=== PATIENT | female | born 1995 | race Caucasian/White ===

== ENCOUNTER 2019-07-07 07:07 | Inpatient (IN) | payer BC ==
[2019-07-07] MEDS ORDERED: Sodium Chloride 0.9% 10 ML Syringe FLUSH PRN (08:21)
[2019-07-07] MEDS ORDERED: Nalbuphine 10 MG/ML Syringe IVPUSH PRN (08:24)
[2019-07-07] MEDS ORDERED: Acetaminophen 325 MG Tab PO PRN ×2 (08:24→21:40)
[2019-07-07] MEDS ORDERED: Oxytocin/Lactated Ringers 10 UNIT/1,000 ML BAG IV SCH ×3 (08:30→21:40)
--- NOTE | 2019-07-07 08:35 | PCM.LDHP ---
<ReaganPeter - Last Filed: 07/07/19 08:30> L&D History of Present Illness - General Date of Service: 07/07/19 Admit Problem/Dx: Patient Status Order with Admit Dx/Problem 07/07/19 08:21 Patient Status [ADT] Routine Admission Diagnosis/Problem Admission Diagnosis/Problem 39 weeks gestation of Source of Information: Patient History Limitations: Reports: No Limitations - History of Present Illness Introduction:: Alek Lieberman is a 23 yo who is being admitted today for induction of labor at 39 2/7 weeks. Patient denies any contractions at this time and is not experiencing any gushing or continuous leaking of fluid. She denies any vaginal bleeding. At this time she is experiencing cough and sore throat symptoms which have been improving over the past week. She states that she had lost her voice yesterday but is speaking clearly today. Patient does not seem concerned with the presenting symptoms. 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 Denies: Ear Pain, Eye Pain, Headaches, Hearing Changes, Visual Changes Pulmonary: Reports: Cough. Denies: Shortness of Breath, Wheezing Cardiovascular: Denies: Chest Pain, Palpitations Gastrointestinal: Denies: Constipation, Diarrhea, Nausea, Vomiting Genitourinary: Denies: Dysuria, Frequency, Burning, Pain Musculoskeletal: Denies: Arm Pain, Back Pain, Leg Pain, Joint Pain Skin: Denies: Rash, Lesions, Lumps Psychiatric: Denies: Depression, Anxiety Neurological: Denies: Dizziness, Numbness, Syncope, Tingling L&D Exam - Exam Exam: See Below - OB Specific Movement: Active Heart Tones: Present - Exam General: Alert, Oriented HEENT: Conjunctiva Clear, EOMI Neck: Supple, Trachea Midline Lungs: Clear to Auscultation, Normal Respiratory Effort Cardiovascular: Regular Rate, Regular Rhythm Skin: Warm, Dry, Intact Psychiatric: Alert, Normal Affect - Problem List (1) 39 weeks gestation of SNOMED Code(s): 11149206 ICD Code: Z3A.39 - 39 WEEKS GESTATION OF Status: Acute Current Visit: Yes (2) GBS bacteriuria SNOMED Code(s): 57226020 ICD Code: R82.71 - BACTERIURIA Status: Acute Current Visit: Yes (3) Chlamydia infection SNOMED Code(s): 240958908 ICD Code: A74.9 - CHLAMYDIAL INFECTION, UNSPECIFIED Status: Acute Current Visit: Yes (4) DVT (deep vein thrombosis) in SNOMED Code(s): 41103722, 597244944 ICD Code: O22.30 - DEEP PHLEBOTHROMBOSIS IN , UNSPECIFIED TRIMESTER Status: Acute Current Visit: Yes (5) UTI (urinary tract infection) during SNOMED Code(s): 255525786 ICD Code: O23.40 - UNSP INFECTION OF URINARY TRACT IN , UNSP TRIMESTER Status: Acute Current Visit: Yes Problem List Initiated/Reviewed/Updated: Yes Orders Last 24hrs: Active Orders 24 hr Category Date Time Status Patient Status [ADT] Routine ADT 07/07/19 08:21 Active Activity as Tolerated [RC] PFP Care 07/07/19 08:24 Active Antiembolic Devices [RC] PER UNIT ROUTINE Care 07/07/19 08:27 Active Communication Order [RC] ASDIRECTED Care 07/07/19 08:21 Active Non Stress Test [RC] PER UNIT ROUTINE Care 07/07/19 08:21 Active Notify Provider Vital Signs [RC] PRN Care 07/07/19 08:25 Active Notify Provider [RC] PFP Care 07/07/19 08:24 Active Notify Provider [RC] PRN Care 07/07/19 08:24 Active Peripheral IV Care [RC] . DIRECTED Care 07/07/19 08:22 Active Pump Management, Intrathecal [RC] ASDIRECTED Care 07/07/19 08:23 Active Urinary Catheter Assessment [RC] ASDIRECTED Care 07/07/19 08:21 Active Vital Signs [RC] PER UNIT ROUTINE Care 07/07/19 08:24 Active Regular Diet [DIET] Diet 07/07/19 Breakfast Active CBC WITH AUTO DIFF [HEME] Routine Lab 07/07/19 08:24 Ordered RAPID PLASMA REAGIN,RPR [CHEM] Routine Lab 07/07/19 08:24 Ordered Acetaminophen [Tylenol] Med 07/07/19 08:24 Ordered 650 mg PO Q6H PRN Ampicillin 1 gm Med 07/07/19 08:30 Ordered Sodium Chloride 0.9% [Normal Saline] 100 ml IV Q4H Ampicillin 2 gm Med 07/07/19 08:24 Ordered Sodium Chloride 0.9% [Normal Saline] 100 ml IV ONETIME Lactated Ringers [Ringers, Lactated] 1,000 ml Med 07/07/19 08:30 Ordered IV ASDIRECTED Nalbuphine [Nubain] Med 07/07/19 08:24 Ordered 10 mg IVPUSH Q2H PRN Oxytocin/Lactated Ringers [Pitocin in LR 10 Units/1,000 Med 07/07/19 08:30 Ordered ML] 10 unit in 1,000 ml IV .CONTINUOUS Oxytocin/Lactated Ringers [Pitocin in LR 10 Units/1,000 Med 07/07/19 08:30 Ordered ML] 10 unit in 1,000 ml IV TITRATE Sodium Chloride 0.9% [Saline Flush] Med 07/07/19 08:21 Ordered 10 ml FLUSH ASDIRECTED PRN Electronic Heart Tones Ext w TOCO [WOMSER] Oth 07/07/19 08:24 Ordered Routine Electronic Heart Tones Internal [WOMSER] Per Unit Oth 07/07/19 08:24 Ordered Routine Peripheral IV Insertion Adult [OM.PC] Routine Oth 07/07/19 08:21 Ordered Sequential Compression Device [OM.PC] Routine Oth 07/07/19 08:27 Ordered Resuscitation Status Routine Resus Stat 07/07/19 08:24 Ordered Medication Orders Acetaminophen (Tylenol) 650 mg PO Q6H PRN PRN Reason: Pain (Mild 1-3) and fever Ampicillin Sodium 2 gm/ Sodium (Chloride) 100 mls @ 200 mls/hr IV ONETIME ONE Stop: 07/07/19 08:53 Ampicillin Sodium 1 gm/ Sodium (Chloride) 100 mls @ 200 mls/hr IV Q4H AICHA Lactated Ringer's (Ringers, Lactated) 1,000 mls @ 100 mls/hr IV ASDIRECTED AICHA Oxytocin/Lactated Ringer's (Pitocin In Lr 10 Units/1,000 Ml) 10 unit in 1,000 mls @ 12 mls/hr IV TITRATE AICHA; Protocol Oxytocin/Lactated Ringer's (Pitocin In Lr 10 Units/1,000 Ml) 10 unit in 1,000 mls @ 100 mls/hr IV .CONTINUOUS AICHA; Protocol Nalbuphine HCl (Nubain) 10 mg IVPUSH Q2H PRN PRN Reason: Pain Sodium Chloride (Saline Flush) 10 ml FLUSH ASDIRECTED PRN PRN Reason: Keep Vein Open * Admit patient for induction of labor * Routine vital checks * Sequential Compression Devices for DVT prophylaxis * Normal diet as tolerated * IV Lactated Ringers keep IV open * IV ampicillin 1gm for GBS bacteruria, Pitocin PRN * Allergy to adhesive tape - Rash * CBC and RPR labs to be drawn LOU Laws 9:00am, 07/07/2019 <Rohit William - Last Filed: 07/07/19 09:47> L&D History of Present Illness - General Admit Problem/Dx: Patient Status Order with Admit Dx/Problem 07/07/19 08:21 Patient Status [ADT] Routine Admission Diagnosis/Problem Admission Diagnosis/Problem 39 weeks gestation of - History of Present Illness Associated Symptoms: Denies: vaginal discharge, vaginal fluid Present Illness Comments:: Alek Lieberman is a 23-year-old -1-1-2 at 39 weeks 2 days (KLARISSA 07/12/2019) by a 6-week ultrasound who presents for elective induction of labor. She has had routine care with myself, Dr. William, starting at 6 weeks gestational age. Her course has been overall uncomplicated except for diagnosis of chlamydia in early . Her and her partner were treated and she had negative test of cure during the . She was started on Lovenox 40 mg daily due to a history of DVT at her initial appointment. She received flu vaccine on 04/07/2019 and Tdap vaccine on 2018. She had exposure to influenza virus and was treated with Tamiflu but did not become ill from influenza. Her is complicated by: * History of DVT in previous , started on Lovenox 40 mg subcutaneous at her initial 6-week visit and will continue for 6 weeks * History of delivery at 35 weeks gestational age, declined use of [place] due to increased risk of DVT * Asymptomatic GBS bacteriuria throughout the , patient to be treated with antibiotics in labor * Chlamydia infection in early and treated with azithromycin with negative test of cure in labs Blood type: O+ Antibody screen: Negative First trimester hematocrit/hemoglobin: 40.3%/13.5 on 12/23/2018 Platelets: 290 on 12/23/2018 Urine culture: 800 CFU of GBS bacteria with mixed sharita suggestive of contamination Rubella status: Immune Hepatitis B surface antigen: Negative RPR: Negative HIV: Negative Gonorrhea: Negative Chlamydia: Positive, treated with azithromycin and negative test of cure Genetic testing: Negative prequel genetic testing with low risk for trisomy 13, 18, 21 or sex chromosomal abnormalities. Male infant. Negative for micro- deletions or expanded testing. Anatomy ultrasound: Normal anatomy without any abnormalities, anterior placenta, no previa, 34th percentile One hour glucose tolerance test: 70 Second trimester hematocrit/hemoglobin: 37.6%/12.4 on 04/14/2019 Platelets: 235 on 04/14/2019 GBS status: Asymptomatic GBS bacteriuria and plan for treatment during labor L&D Exam - OB Specific Heart Tones per Min: 125 (+15 x 15 accelerations, intermittent early decelerations noted) Heart Rate (FHR) Variability: Moderate (6-25 bmp) Presentation: Vertex - Torres Score Torres Score Cervix Position: Midposition Torres Score Consistency: Medium Torres Score Effacement: 51-70% (70%) Torres Score Dilation: 1-2 cm (1.5 cm) Torres Score 's Station: -3 (-4) Torres Score Total: 5 - Exam Genitourinary: Normal external exam Extremities: Normal Inspection, No Pedal Edema Psychiatric: Normal Mood - Patient Data Lab Results Last 24 hrs: Laboratory Results - last 24 hr 07/07/19 Range/Units 08:35 WBC 7.21 (3.98-10.04) K/mm3 RBC 3.90 L (3.98-5.22) M/mm3 Hgb 13.1 (11.2-15.7) gm/dl Hct 39.3 (34.1-44.9) % MCV 100.8 H (79.4-94.8) fl MCH 33.6 H (25.6-32.2) pg MCHC 33.3 (32.2-35.5) g/dl RDW Std Deviation 49.3 H (36.4-46.3) fL Plt Count 234 (182-369) K/mm3 MPV 9.5 (9.4-12.3) fl Neut % (Auto) 66.1 (34.0-71.1) % Lymph % (Auto) 27.9 (19.3-51.7) % [place] % (Auto) 5.5 (4.7-12.5) % Eos % (Auto) 0.3 L (0.7-5.8) Baso % (Auto) 0.1 (0.1-1.2) % Neut # (Auto) 4.76 (1.56-6.13) K/mm3 Lymph # (Auto) 2.01 (1.18-3.74) K/mm3 [place] # (Auto) 0.40 H (0.24-0.36) K/mm3 Eos # (Auto) 0.02 L (0.04-0.36) K/mm3 Baso # (Auto) 0.01 (0.01-0.08) K/mm3 Result Diagrams: 07/07/19 08:35 Orders Last 24hrs: Active Orders 24 hr Category Date Time Status Patient Status [ADT] Routine ADT 07/07/19 08:21 Active Activity as Tolerated [RC] PFP Care 07/07/19 08:24 Active Antiembolic Devices [RC] PER UNIT ROUTINE Care 07/07/19 08:27 Active Communication Order [RC] ASDIRECTED Care 07/07/19 08:21 Active Non Stress Test [RC] PER UNIT ROUTINE Care 07/07/19 08:21 Active Notify Provider Vital Signs [RC] PRN Care 07/07/19 08:25 Active Notify Provider [RC] ASDIRECTED Care 07/07/19 09:03 Active Notify Provider [RC] PFP Care 07/07/19 08:24 Active Notify Provider [RC] PRN Care 07/07/19 08:24 Active Peripheral IV Care [RC] . DIRECTED Care 07/07/19 08:22 Active Pump Management, Intrathecal [RC] ASDIRECTED Care 07/07/19 08:23 Active Urinary Catheter Assessment [RC] ASDIRECTED Care 07/07/19 08:21 Active Vital Signs [RC] PER UNIT ROUTINE Care 07/07/19 08:24 Active Regular Diet [DIET] Diet 07/07/19 Breakfast Active RAPID PLASMA REAGIN,RPR [CHEM] Routine Lab 07/07/19 08:35 Received Acetaminophen [Tylenol] Med 07/07/19 08:24 Active 650 mg PO Q6H PRN Ampicillin 1 gm Med 07/07/19 13:00 Active Sodium Chloride 0.9% [Normal Saline] 100 ml IV Q4H Bupivicaine/fentaNYL/NS [fentaNYL/Bupivacaine/NS 2 MCG- Med 07/07/19 09:03 Active 0.125% 250 ML] 250 ml EPIDUR CONTINUOUS PRN Lactated Ringers [Ringers, Lactated] 1,000 ml Med 07/07/19 08:30 Active IV ASDIRECTED Nalbuphine [Nubain] Med 07/07/19 08:24 Active 10 mg IVPUSH Q2H PRN Oxytocin/Lactated Ringers [Pitocin in LR 10 Units/1,000 Med 07/07/19 08:30 Active ML] 10 unit in 1,000 ml IV .CONTINUOUS Oxytocin/Lactated Ringers [Pitocin in LR 10 Units/1,000 Med 07/07/19 08:30 Active ML] 10 unit in 1,000 ml IV TITRATE Sodium Chloride 0.9% [Saline Flush] Med 07/07/19 08:21 Active 10 ml FLUSH ASDIRECTED PRN diphenhydrAMINE [Benadryl] Med 07/07/19 09:03 Active 25 mg IVPUSH Q6H PRN ePHEDrine [ePHEDrine sulfate] Med 07/07/19 09:03 Active 5 mg IVPUSH ASDIRECTED PRN fentaNYL [Sublimaze] Med 07/07/19 09:03 Active 100 mcg EPIDUR Q3H PRN Electronic Heart Tones Ext w TOCO [WOMSER] Oth 07/07/19 08:24 Ordered Routine Electronic Heart Tones Internal [WOMSER] Per Unit Ot 07/07/19 08:24 Ordered Routine Peripheral IV Insertion Adult [OM.PC] Routine Oth 07/07/19 08:21 Ordered Sequential Compression Device [OM.PC] Routine Oth 07/07/19 08:27 Ordered Resuscitation Status Routine Resus Stat 07/07/19 08:24 Ordered Medication Orders Acetaminophen (Tylenol) 650 mg PO Q6H PRN PRN Reason: Pain (Mild 1-3) and fever Diphenhydramine HCl (Benadryl) 25 mg IVPUSH Q6H PRN PRN Reason: pruritis Ephedrine Sulfate (Ephedrine Sulfate) 5 mg IVPUSH ASDIRECTED PRN PRN Reason: Hypotension Fentanyl (Sublimaze) 100 mcg EPIDUR Q3H PRN PRN Reason: Pain Fentanyl/Bupivacaine HCl (Fentanyl/Bupivacaine/Ns 2 Mcg-0.125% 250 Ml) 250 ml EPIDUR CONTINUOUS PRN PRN Reason: Pain Ampicillin Sodium 1 gm/ Sodium (Chloride) 100 mls @ 200 mls/hr IV Q4H AICHA Lactated Ringer's (Ringers, Lactated) 1,000 mls @ 100 mls/hr IV ASDIRECTED AICHA Last Admin: 07/07/19 09:00 Dose: 100 mls/hr Oxytocin/Lactated Ringer's (Pitocin In Lr 10 Units/1,000 Ml) 10 unit in 1,000 mls @ 12 mls/hr IV TITRATE AICHA; Protocol Last Admin: 07/07/19 09:02 Dose: 2 munits/min, 12 mls/hr Oxytocin/Lactated Ringer's (Pitocin In Lr 10 Units/1,000 Ml) 10 unit in 1,000 mls @ 100 mls/hr IV .CONTINUOUS AICHA; Protocol Nalbuphine HCl (Nubain) 10 mg IVPUSH Q2H PRN PRN Reason: Pain Sodium Chloride (Saline Flush) 10 ml FLUSH ASDIRECTED PRN PRN Reason: Keep Vein Open Assessment/Plan Comment:: I have seen and evaluated the patient personally with the PA student and agree with the assessment and plan as per above except for the following changes: * Ampicillin 2 g initially followed by ampicillin 1 g IV every 4 hours for GBS prophylaxis * We will plan to restart Lovenox 4 to 6 hours after vaginal delivery and between 6 to 12 hours if she needs to have delivery. She will be restarted on Lovenox 40 mg subcutaneous daily for 6 weeks after delivery. * Plan for artificial rupture of membranes once patient has had sufficient dosing with the antibiotic * Anticipate vaginal delivery unless otherwise indicated. Rohit William MD 9:47 AM 07/07/2019
[2019-07-07] MEDS: Lactated Ringers 1,000 ML IV SCH ×3 (09:00→15:46)
[2019-07-07] MEDS ORDERED: Ampicillin 2 GM in Sodium Chloride 0.9% 100 ML IV ONE (09:00)
[2019-07-07] MEDS ORDERED: fentaNYL 100 MCG/2 ML SDV EPIDUR PRN (09:03)
[2019-07-07] MEDS ORDERED: ePHEDrine 50 MG/ML SDV IVPUSH PRN (09:03)
[2019-07-07] MEDS ORDERED: diphenhydrAMINE 50 MG/ML SDV IVPUSH PRN (09:03)
[2019-07-07] MEDS ORDERED: fentaNYL/Bupivacaine/NS 2 MCG-0.125% 250 ML EPIDUR PRN (09:03)
--- NOTE | 2019-07-07 09:40 | PCM.PREANE ---
Preanesthetic Assessment - Procedure Proposed Procedure: NILS - Anesthesia/Transfusion/Family Hx Anesthesia History: Prior Anesthesia Reaction Type of Anesthesia Reaction: Excessive Nausea/Vomiting Family History of Anesthesia Reaction: No Transfusion History: No Prior Transfusion(s) - Review of Systems General: No Symptoms Pulmonary: Shortness of Breath (just got over cold), Cough Cardiovascular: No Symptoms Gastrointestinal: No Symptoms Neurological: No Symptoms Other: Reports: Throat Pain (sore throat from cold) - Physical Assessment Vital Signs: 97.7 114/70 83 15 Height: 5 ft 5 in Weight: 71.214 kg ASA Class: 2 Mental Status: Alert & Oriented x3 Airway Class: Mallampati = 1 Dentition: Reports: Normal Dentition Thyro-Mental Finger Breadths: 3 Mouth Opening Finger Breadths: 3 ROM/Head Extension: Full Lungs: Clear to Auscultation, Normal Respiratory Effort Cardiovascular: Regular Rate, Regular Rhythm - Lab Values: Laboratory Last Values WBC 7.21 K/mm3 (3.98-10.04) 07/07/19 08:35 RBC 3.90 M/mm3 (3.98-5.22) L 07/07/19 08:35 Hgb 13.1 gm/dl (11.2-15.7) 07/07/19 08:35 Hct 39.3 % (34.1-44.9) 07/07/19 08:35 MCV 100.8 fl (79.4-94.8) H 07/07/19 08:35 MCH 33.6 pg (25.6-32.2) H 07/07/19 08:35 MCHC 33.3 g/dl (32.2-35.5) 07/07/19 08:35 RDW Std Deviation 49.3 fL (36.4-46.3) H 07/07/19 08:35 Plt Count 234 K/mm3 (182-369) 07/07/19 08:35 MPV 9.5 fl (9.4-12.3) 07/07/19 08:35 Neut % (Auto) 66.1 % (34.0-71.1) 07/07/19 08:35 Lymph % (Auto) 27.9 % (19.3-51.7) 07/07/19 08:35 [place] % (Auto) 5.5 % (4.7-12.5) 07/07/19 08:35 Eos % (Auto) 0.3 (0.7-5.8) L 07/07/19 08:35 Baso % (Auto) 0.1 % (0.1-1.2) 07/07/19 08:35 Neut # (Auto) 4.76 K/mm3 (1.56-6.13) 07/07/19 08:35 Lymph # (Auto) 2.01 K/mm3 (1.18-3.74) 07/07/19 08:35 [place] # (Auto) 0.40 K/mm3 (0.24-0.36) H 07/07/19 08:35 Eos # (Auto) 0.02 K/mm3 (0.04-0.36) L 07/07/19 08:35 Baso # (Auto) 0.01 K/mm3 (0.01-0.08) 07/07/19 08:35 - Allergies Allergies/Adverse Reactions: Allergies Allergy/AdvReac Type Severity Reaction Status Date / Time No Known Allergies Allergy Verified 09/11/17 17:22 - Blood Blood Available: No - Acknowledgements Anesthesia Type Planned: Epidural Pt an Appropriate Candidate for the Planned Anesthesia: Yes Alternatives and Risks of Anesthesia Discussed w Pt/Guardian: Yes Pt/Guardian Understands and Agrees with Anesthesia Plan: Yes PreAnesthesia Questionnaire - Past Health History Medical/Surgical History: Denies Medical/Surgical History Cardiovascular History: Reports: Blood Clots/VTE/DVT (DVT with last last - while - has been on lovenex- last took it on the 18. 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 [No Known Home Meds] 09/11/17 [History] - CURRENT (IN HOUSE) MEDS Current Meds: Current Medications Acetaminophen (Tylenol) 650 mg PO Q6H PRN PRN Reason: Pain (Mild 1-3) and fever Diphenhydramine HCl (Benadryl) 25 mg IVPUSH Q6H PRN PRN Reason: pruritis Ephedrine Sulfate (Ephedrine Sulfate) 5 mg IVPUSH ASDIRECTED PRN PRN Reason: Hypotension Fentanyl (Sublimaze) 100 mcg EPIDUR Q3H PRN PRN Reason: Pain Fentanyl/Bupivacaine HCl (Fentanyl/Bupivacaine/Ns 2 Mcg-0.125% 250 Ml) 250 ml EPIDUR CONTINUOUS PRN PRN Reason: Pain Ampicillin Sodium 1 gm/ Sodium (Chloride) 100 mls @ 200 mls/hr IV Q4H AICHA Lactated Ringer's (Ringers, Lactated) 1,000 mls @ 100 mls/hr IV ASDIRECTED AICHA Last Admin: 07/07/19 09:00 Dose: 100 mls/hr Oxytocin/Lactated Ringer's (Pitocin In Lr 10 Units/1,000 Ml) 10 unit in 1,000 mls @ 12 mls/hr IV TITRATE AICHA; Protocol Last Admin: 07/07/19 09:02 Dose: 2 munits/min, 12 mls/hr Oxytocin/Lactated Ringer's (Pitocin In Lr 10 Units/1,000 Ml) 10 unit in 1,000 mls @ 100 mls/hr IV .CONTINUOUS AICHA; Protocol Nalbuphine HCl (Nubain) 10 mg IVPUSH Q2H PRN PRN Reason: Pain Sodium Chloride (Saline Flush) 10 ml FLUSH ASDIRECTED PRN PRN Reason: Keep Vein Open Discontinued Medications Ampicillin Sodium 2 gm/ Sodium (Chloride) 100 mls @ 200 mls/hr IV ONETIME ONE Stop: 07/07/19 09:29 Last Admin: 07/07/19 09:00 Dose: 200 mls/hr
[2019-07-07] MEDS: Ampicillin 1 GM in Sodium Chloride 0.9% 100 ML IV SCH ×2 (13:02→17:05)
--- NOTE | 2019-07-07 13:43 | PCM.PNLD ---
Labor Progress Note - VS & Meds Vital Signs: Last Vital Signs Temp 36.5 C 07/07/19 08:24 Pulse 85 07/07/19 08:24 Resp 15 07/07/19 08:24 BP 114/70 07/07/19 08:24 Pulse Ox Active Medications: Current Medications Acetaminophen (Tylenol) 650 mg PO Q6H PRN PRN Reason: Pain (Mild 1-3) and fever Diphenhydramine HCl (Benadryl) 25 mg IVPUSH Q6H PRN PRN Reason: pruritis Ephedrine Sulfate (Ephedrine Sulfate) 5 mg IVPUSH ASDIRECTED PRN PRN Reason: Hypotension Fentanyl (Sublimaze) 100 mcg EPIDUR Q3H PRN PRN Reason: Pain Fentanyl/Bupivacaine HCl (Fentanyl/Bupivacaine/Ns 2 Mcg-0.125% 250 Ml) 250 ml EPIDUR CONTINUOUS PRN PRN Reason: Pain Ampicillin Sodium 1 gm/ Sodium (Chloride) 100 mls @ 200 mls/hr IV Q4H AICHA Last Admin: 07/07/19 13:02 Dose: 200 mls/hr Lactated Ringer's (Ringers, Lactated) 1,000 mls @ 100 mls/hr IV ASDIRECTED AICHA Last Admin: 07/07/19 09:00 Dose: 100 mls/hr Oxytocin/Lactated Ringer's (Pitocin In Lr 10 Units/1,000 Ml) 10 unit in 1,000 mls @ 12 mls/hr IV TITRATE AICHA; Protocol Last Titration: 07/07/19 13:00 Dose: 12 munits/min, 72 mls/hr Oxytocin/Lactated Ringer's (Pitocin In Lr 10 Units/1,000 Ml) 10 unit in 1,000 mls @ 100 mls/hr IV .CONTINUOUS AICHA; Protocol Nalbuphine HCl (Nubain) 10 mg IVPUSH Q2H PRN PRN Reason: Pain Sodium Chloride (Saline Flush) 10 ml FLUSH ASDIRECTED PRN PRN Reason: Keep Vein Open Discontinued Medications Ampicillin Sodium 2 gm/ Sodium (Chloride) 100 mls @ 200 mls/hr IV ONETIME ONE Stop: 07/07/19 09:29 Last Admin: 07/07/19 09:00 Dose: 200 mls/hr - Uterine Contractions Uterine Monitoring Mode: External [place] Contraction Frequency (min): 3-4 Contraction Duration (sec): 45-60 Contraction Intensity: Moderate - Monitoring Monitor Mode: Doppler/Auscultation Heart Rate (FHR) Baseline: 135 Heart Rate (FHR) Per Doppler: 135 Heart Rate (FHR) Variability: Moderate (6-25 bmp) Accelerations: Present, 15x15 Decelerations: Variable, Intermittent (<50% x 20 min) Strip Review: Category II - Vaginal Exam Dilation (cm): 3 Effacement (Percent): 90 Station: -3 Cervical Position: Anterior Sterile Vaginal Exam Performed By: Rohit William Vaginal Exam Comment: Artificial rupture of membranes with [place] with return of clear fluid. Mother and tolerated without difficulty. - Labor Progress (Free Text) Labor Progress: * Patient with good progression on Pitocin * Continue Ampicillin for GBS prophylaxis * Routine vitals * SCDs while immobile to reduce risk of DVT * Continuous monitoring as possible * Anticipate vaginal delivery unless otherwise indicated Rohit William MD 1:43 PM 07/07/2019
--- NOTE | 2019-07-07 16:26 | PCM.PNLD ---
Labor Progress Note - VS & Meds Vital Signs: Last Vital Signs Temp 36.5 C 07/07/19 08:24 Pulse 85 07/07/19 08:24 Resp 15 07/07/19 08:24 BP 114/70 07/07/19 08:24 Pulse Ox Active Medications: Current Medications Acetaminophen (Tylenol) 650 mg PO Q6H PRN PRN Reason: Pain (Mild 1-3) and fever Diphenhydramine HCl (Benadryl) 25 mg IVPUSH Q6H PRN PRN Reason: pruritis Ephedrine Sulfate (Ephedrine Sulfate) 5 mg IVPUSH ASDIRECTED PRN PRN Reason: Hypotension Fentanyl (Sublimaze) 100 mcg EPIDUR Q3H PRN PRN Reason: Pain Last Admin: 07/07/19 14:36 Dose: 100 mcg Fentanyl/Bupivacaine HCl (Fentanyl/Bupivacaine/Ns 2 Mcg-0.125% 250 Ml) 250 ml EPIDUR CONTINUOUS PRN PRN Reason: Pain Last Admin: 07/07/19 14:37 Dose: 250 ml Ampicillin Sodium 1 gm/ Sodium (Chloride) 100 mls @ 200 mls/hr IV Q4H AICHA Last Admin: 07/07/19 13:02 Dose: 200 mls/hr Lactated Ringer's (Ringers, Lactated) 1,000 mls @ 100 mls/hr IV ASDIRECTED AICHA Last Admin: 07/07/19 15:46 Dose: 100 mls/hr Oxytocin/Lactated Ringer's (Pitocin In Lr 10 Units/1,000 Ml) 10 unit in 1,000 mls @ 12 mls/hr IV TITRATE AICHA; Protocol Last Titration: 07/07/19 13:45 Dose: 6 munits/min, 36 mls/hr Oxytocin/Lactated Ringer's (Pitocin In Lr 10 Units/1,000 Ml) 10 unit in 1,000 mls @ 100 mls/hr IV .CONTINUOUS AICHA; Protocol Nalbuphine HCl (Nubain) 10 mg IVPUSH Q2H PRN PRN Reason: Pain Sodium Chloride (Saline Flush) 10 ml FLUSH ASDIRECTED PRN PRN Reason: Keep Vein Open Discontinued Medications Ampicillin Sodium 2 gm/ Sodium (Chloride) 100 mls @ 200 mls/hr IV ONETIME ONE Stop: 07/07/19 09:29 Last Admin: 07/07/19 09:00 Dose: 200 mls/hr - Uterine Contractions Uterine Monitoring Mode: External [place] Contraction Frequency (min): 2-5 Contraction Duration (sec): 45-60 Contraction Intensity: Moderate - Monitoring Monitor Mode: Doppler/Auscultation Heart Rate (FHR) Baseline: 125 Heart Rate (FHR) Per Doppler: 125 Heart Rate (FHR) Variability: Moderate (6-25 bmp) Accelerations: Present, 15x15 Decelerations: Variable, Recurrent (>50% x 20 min) Strip Review: Category II - Vaginal Exam Dilation (cm): 5 Effacement (Percent): 90 Station: -2 Cervical Position: Anterior Sterile Vaginal Exam Performed By: Rohit William Vaginal Exam Comment: Patient with recurrent variable decelerations down to 60s to 80s with almost every contraction. Pitocin stopped at this time. Continue to have recurrent variable decelerations with Pitocin stopped. Decision made for amnioinfusion. Verbal consent obtained from the patient for placement of intrauterine pressure catheter and scalp electrode to more closely monitor heart rate. Patient gave verbal consent after discussion of risks and benefits of the placement of the monitors. Intrauterine pressure catheter placed without difficulty and amnioinfusion started. Patient to receive 250 mL bolus of normal saline and then run infusion at 50 mL/h afterwards. scalp electrode then placed without difficulty on 's head with good tracing noted. Mother and tolerated both procedures without difficulty. We will plan to restart augmentation of labor with Pitocin after amnioinfusion bolus has been instilled. - Labor Progress (Free Text) Labor Progress: Patient making progress Recurrent decelerations and placement of IUPC and scalp electrode as per above Amnioinfusion started with NS bolus of 250 mL then transition to 50 ml/hr after to try to improve variable decelerations Epidural in place and good anesthesia SCDs on for history of DVT Routine vitals Continuous monitoring Anticipate vaginal delivery unless otherwise indicated Rohit William MD 6:24 PM 07/07/2019
[2019-07-07] MEDS ORDERED: Sodium Chloride 0.9% 1,000 ML PRN (17:00)
--- NOTE | 2019-07-07 18:30 | PCM.PNLD ---
Labor Progress Note - VS & Meds Vital Signs: Last Vital Signs Temp 36.5 C 07/07/19 08:24 Pulse 85 07/07/19 08:24 Resp 15 07/07/19 08:24 BP 114/70 07/07/19 08:24 Pulse Ox Active Medications: Current Medications Acetaminophen (Tylenol) 650 mg PO Q6H PRN PRN Reason: Pain (Mild 1-3) and fever Diphenhydramine HCl (Benadryl) 25 mg IVPUSH Q6H PRN PRN Reason: pruritis Ephedrine Sulfate (Ephedrine Sulfate) 5 mg IVPUSH ASDIRECTED PRN PRN Reason: Hypotension Fentanyl (Sublimaze) 100 mcg EPIDUR Q3H PRN PRN Reason: Pain Last Admin: 07/07/19 14:36 Dose: 100 mcg Fentanyl/Bupivacaine HCl (Fentanyl/Bupivacaine/Ns 2 Mcg-0.125% 250 Ml) 250 ml EPIDUR CONTINUOUS PRN PRN Reason: Pain Last Admin: 07/07/19 14:37 Dose: 250 ml Ampicillin Sodium 1 gm/ Sodium (Chloride) 100 mls @ 200 mls/hr IV Q4H AICHA Last Admin: 07/07/19 17:05 Dose: 200 mls/hr Lactated Ringer's (Ringers, Lactated) 1,000 mls @ 100 mls/hr IV ASDIRECTED AICHA Last Admin: 07/07/19 15:46 Dose: 100 mls/hr Oxytocin/Lactated Ringer's (Pitocin In Lr 10 Units/1,000 Ml) 10 unit in 1,000 mls @ 12 mls/hr IV TITRATE AICHA; Protocol Last Titration: 07/07/19 18:10 Dose: 2 munits/min, 12 mls/hr Oxytocin/Lactated Ringer's (Pitocin In Lr 10 Units/1,000 Ml) 10 unit in 1,000 mls @ 100 mls/hr IV .CONTINUOUS AICHA; Protocol Sodium Chloride (Normal Saline) 1,000 mls @ 50 mls/hr .XX ASDIRECTED PRN PRN Reason: AMNIO INFUSION IN UTERUS Last Admin: 07/07/19 16:30 Dose: 50 mls/hr Nalbuphine HCl (Nubain) 10 mg IVPUSH Q2H PRN PRN Reason: Pain Sodium Chloride (Saline Flush) 10 ml FLUSH ASDIRECTED PRN PRN Reason: Keep Vein Open Discontinued Medications Ampicillin Sodium 2 gm/ Sodium (Chloride) 100 mls @ 200 mls/hr IV ONETIME ONE Stop: 07/07/19 09:29 Last Admin: 07/07/19 09:00 Dose: 200 mls/hr - Uterine Contractions Uterine Monitoring Mode: External [place] Contraction Frequency (min): 5 Contraction Duration (sec): 60-75 Contraction Intensity: Mild to Moderate - Monitoring Monitor Mode: Spiral Electrode Heart Rate (FHR) Baseline: 130 Heart Rate (FHR) Variability: Moderate (6-25 bmp) Accelerations: Present, 15x15 Decelerations: Variable, Intermittent (<50% x 20 min) Strip Review: Category II - Vaginal Exam Dilation (cm): 6 Effacement (Percent): 90 Station: -2 Cervical Position: Anterior Sterile Vaginal Exam Performed By: Rohit William Vaginal Exam Comment: Return of moderate amount of clear fluid with cervical exam. - Labor Progress (Free Text) Labor Progress: * Patient continuing to make progression at this time * Patient with category 2 tracing with intermittent variable decelerations that have decreased in severity with lowest heart rate into the 70s to 80s at this time * Patient continues to have moderate variability with accelerations after contractions * Patient with adequate rest following discontinuation of Pitocin * Recommend reinitiation of Pitocin and will continue induction at this time * We will continue to increase Pitocin as indicated based on tracing to try to avoid variable decelerations * Routine vitals * Epidural in place for anesthesia * SCDs on to prevent DVT * Anticipate vaginal delivery unless otherwise indicated Rohit William MD 6:30 PM 07/07/2019
[2019-07-07] MEDS ORDERED: Ondansetron 4 MG/2 ML SDV IVPUSH PRN (18:32)
--- NOTE | 2019-07-07 20:22 | PCM.DEL ---
L & D Note - General Info Date of Service: 07/07/19 Mother's Due Date: 07/12/19 - Delivery Note Labor: Augmented by ARM, Augmented by Oxytocin Infant Delivery Method: Spontaneous Vaginal Delivery-Single Presentation: Right Occiput Anterior (GALA) Nuchal Cord: Present (x1 and not reduced prior to delivery) Anesthesia Type: Epidural Episiotomy Type: None Laceration: Labial (left labial first degree repaired with 4-0 Vicryl), Perineal (first degree midline, repaired with 4-0 Vicryl) Suture type: Vicryl Suture size: 4-0 Placenta: Intact, Spontaneous Cord: 3 Vessels Estimated Blood Loss: 300 Resuscitation Needed: No : Bulb Syringe, Stimulated, Warmed, [place] Used Provider: Rohit William Score 1 min: 9 Score 5 min: 9 Second Stage Interventions: Reports: Pushing Effectively, Pushing, Stirrups/Leg Supports Delivery Comments (Free Text/Narrative):: Stage I: Alek Lieberman was admitted for elective induction of labor. On admission her cervix was dilated to 1.5 cm. She was GBS positive with asymptomatic GBS bacteria. She was started on ampicillin for GBS prophylaxis. She received a total of 3 doses prior to delivery. She was started on Pitocin for induction of labor. She had artificial rupture of membranes with return of clear fluid. She was given an epidural for anesthesia. She began having significant deep variable decelerations and the Pitocin was stopped. She continued to have deep variable decelerations and an intrauterine pressure catheter was placed and amnioinfusion started. She also had placement of scalp electrode for monitoring of heart rate. She was given approximately 1 hour of time to rest and recover with amnioinfusion and Pitocin was restarted for ongoing induction of labor. She progressed to complete and pushing. Stage II: On 07/07/2019 she had a normal vaginal delivery of a live male at 19:28. Apgars of 9 & 9. Weight and length were unavailable at time of this note. There was a single nuchal cord that was tight around the neck and not able to be reduced prior to delivery. was delivered in GALA position. The cord was doubly clamped and cut by father of the infant. was placed on mother's abdomen. Stage III: She had a spontaneous delivery of an intact placenta in Steve presentation. Three vessel cord. She was given pitocin and fundal massage. She had a first-degree midline perineal laceration that was repaired with 4-0 Vicryl. She had a first-degree left labial laceration that was bleeding and repaired with 4-0 Vicryl in running fashion. Mom and baby were stable to recovery. EBL of 300 mL. Rohit William MD 8:15 PM 07/07/2019 Induction Criteria - Torres Score Torres Score Dilation: 1-2 cm Torres Score Effacement: 60-70% Torres Score Infant's Station: -3 Torres Score Consistency: Medium Torres Score Cervix Position: Midposition Torres Score Total: 5 Torres Score Presenting Part: Reports: Cephalic - Induction Gestational Age >/= 39 wks: Yes Estimated Pelvis: Reports: Adequate Reassuring Monitoring Strip: Yes Absence of Tachy Systole: Yes - Augmentation Estimated Pelvis: Reports: Adequate Weight Estimated:: Reports: AGA Reassuring Monitoring Strip: Yes Absence of Tachy Systole: Yes - General Info Date of Service: 07/07/19 - Patient Data Vitals - Most Recent: Last Vital Signs Temp 36.5 C 07/07/19 08:24 Pulse 85 07/07/19 08:24 Resp 15 07/07/19 08:24 BP 114/70 07/07/19 08:24 Pulse Ox Weight - Most Recent: 71.214 kg Lab Results Last 24 Hours: Laboratory Results - last 24 hr 07/07/19 07/07/19 Range/Units 08:35 08:35 WBC 7.21 (3.98-10.04) K/mm3 RBC 3.90 L (3.98-5.22) M/mm3 Hgb 13.1 (11.2-15.7) gm/dl Hct 39.3 (34.1-44.9) % MCV 100.8 H (79.4-94.8) fl MCH 33.6 H (25.6-32.2) pg MCHC 33.3 (32.2-35.5) g/dl RDW Std Deviation 49.3 H (36.4-46.3) fL Plt Count 234 (182-369) K/mm3 MPV 9.5 (9.4-12.3) fl Neut % (Auto) 66.1 (34.0-71.1) % Lymph % (Auto) 27.9 (19.3-51.7) % [place] % (Auto) 5.5 (4.7-12.5) % Eos % (Auto) 0.3 L (0.7-5.8) Baso % (Auto) 0.1 (0.1-1.2) % Neut # (Auto) 4.76 (1.56-6.13) K/mm3 Lymph # (Auto) 2.01 (1.18-3.74) K/mm3 [place] # (Auto) 0.40 H (0.24-0.36) K/mm3 Eos # (Auto) 0.02 L (0.04-0.36) K/mm3 Baso # (Auto) 0.01 (0.01-0.08) K/mm3 RPR Non-reactive (NONREACTIVE) Med Orders - Current: Current Medications Acetaminophen (Tylenol) 650 mg PO Q6H PRN PRN Reason: Pain (Mild 1-3) and fever Diphenhydramine HCl (Benadryl) 25 mg IVPUSH Q6H PRN PRN Reason: pruritis Ephedrine Sulfate (Ephedrine Sulfate) 5 mg IVPUSH ASDIRECTED PRN PRN Reason: Hypotension Fentanyl (Sublimaze) 100 mcg EPIDUR Q3H PRN PRN Reason: Pain Last Admin: 07/07/19 14:36 Dose: 100 mcg Fentanyl/Bupivacaine HCl (Fentanyl/Bupivacaine/Ns 2 Mcg-0.125% 250 Ml) 250 ml EPIDUR CONTINUOUS PRN PRN Reason: Pain Last Admin: 07/07/19 14:37 Dose: 250 ml Ampicillin Sodium 1 gm/ Sodium (Chloride) 100 mls @ 200 mls/hr IV Q4H AICHA Last Admin: 07/07/19 17:05 Dose: 200 mls/hr Lactated Ringer's (Ringers, Lactated) 1,000 mls @ 100 mls/hr IV ASDIRECTED AICHA Last Admin: 07/07/19 15:46 Dose: 100 mls/hr Oxytocin/Lactated Ringer's (Pitocin In Lr 10 Units/1,000 Ml) 10 unit in 1,000 mls @ 12 mls/hr IV TITRATE AICHA; Protocol Last Titration: 01/20/20 18:56 Dose: 4 munits/min, 24 mls/hr Oxytocin/Lactated Ringer's (Pitocin In Lr 10 Units/1,000 Ml) 10 unit in 1,000 mls @ 100 mls/hr IV .CONTINUOUS AICHA; Protocol Last Admin: 07/07/19 20:14 Dose: 500 mls/hr Sodium Chloride (Normal Saline) 1,000 mls @ 50 mls/hr .XX ASDIRECTED PRN PRN Reason: AMNIO INFUSION IN UTERUS Last Admin: 07/07/19 16:30 Dose: 50 mls/hr Nalbuphine HCl (Nubain) 10 mg IVPUSH Q2H PRN PRN Reason: Pain Ondansetron HCl (Zofran) 4 mg IVPUSH Q8H PRN PRN Reason: Nausea Last Admin: 07/07/19 18:52 Dose: 4 mg Sodium Chloride (Saline Flush) 10 ml FLUSH ASDIRECTED PRN PRN Reason: Keep Vein Open Discontinued Medications Ampicillin Sodium 2 gm/ Sodium (Chloride) 100 mls @ 200 mls/hr IV ONETIME ONE Stop: 07/07/19 09:29 Last Admin: 07/07/19 09:00 Dose: 200 mls/hr - Problem List & Annotations (1) History of deep vein thrombosis (DVT) during SNOMED Code(s): 37690265 Code(s): Z86.718 - PERSONAL HISTORY OF OTHER VENOUS THROMBOSIS AND EMBOLISM; Z87.59 - PERSONAL HISTORY OF COMP OF PREG, CHLDBRTH AND THE PUERP Status: Acute Current Visit: Yes (2) History of delivery, currently SNOMED Code(s): 928946608, 617154514 Code(s): O09.219 - SUPRVSN OF PREG W HISTORY OF PRE-TERM LABOR, UNSP TRIMESTER Status: Acute Current Visit: Yes (3) 39 weeks gestation of SNOMED Code(s): 28234070 Code(s): Z3A.39 - 39 WEEKS GESTATION OF Status: Acute Current Visit: Yes (4) Chlamydia infection SNOMED Code(s): 662658040 Code(s): A74.9 - CHLAMYDIAL INFECTION, UNSPECIFIED Status: Acute Current Visit: Yes (5) GBS bacteriuria SNOMED Code(s): 28044010 Code(s): R82.71 - BACTERIURIA Status: Acute Current Visit: Yes (6) Vaginal delivery SNOMED Code(s): 397071553 Code(s): O80 - ENCOUNTER FOR FULL-TERM UNCOMPLICATED DELIVERY Status: Acute Current Visit: Yes (7) First degree perineal laceration during delivery SNOMED Code(s): 984049072 Code(s): O70.0 - FIRST DEGREE PERINEAL LACERATION DURING DELIVERY Status: Acute Current Visit: Yes - Problem List Review Problem List Initiated/Reviewed/Updated: Yes - My Orders Last 24 Hours: My Active Orders 07/07/19 08:21 Patient Status [ADT] Routine Communication Order [RC] ASDIRECTED Urinary Catheter Assessment [RC] ASDIRECTED Sodium Chloride 0.9% [Saline Flush] 10 ml FLUSH ASDIRECTED PRN Peripheral IV Insertion Adult [OM.PC] Routine 07/07/19 08:22 Peripheral IV Care [RC] . DIRECTED 07/07/19 08:23 Pump Management, Intrathecal [RC] ASDIRECTED 07/07/19 08:24 Activity as Tolerated [RC] PFP Notify Provider [RC] PFP Notify Provider [RC] PRN Vital Signs [RC] PER UNIT ROUTINE Acetaminophen [Tylenol] 650 mg PO Q6H PRN Nalbuphine [Nubain] 10 mg IVPUSH Q2H PRN Electronic Heart Tones Ext w TOCO [WOMSER] Routine Electronic Heart Tones Internal [WOMSER] Per Unit Routine Resuscitation Status Routine 07/07/19 08:25 Notify Provider Vital Signs [RC] PRN 07/07/19 08:27 Antiembolic Devices [RC] PER UNIT ROUTINE Sequential Compression Device [OM.PC] Routine 07/07/19 08:30 Lactated Ringers [Ringers, Lactated] 1,000 ml IV ASDIRECTED Oxytocin/Lactated Ringers [Pitocin in LR 10 Units/1,000 ML] 10 unit in 1,000 ml IV .CONTINUOUS Oxytocin/Lactated Ringers [Pitocin in LR 10 Units/1,000 ML] 10 unit in 1,000 ml IV TITRATE 07/07/19 13:00 Ampicillin 1 gm Sodium Chloride 0.9% [Normal Saline] 100 ml IV Q4H 07/07/19 17:00 Sodium Chloride 0.9% [Normal Saline] 1,000 ml .XX ASDIRECTED 07/07/19 18:32 Ondansetron [Zofran] 4 mg IVPUSH Q8H PRN 07/07/19 20:00 Patient Status Manage Transfer [TRANSFER] Routine 07/07/19 Breakfast Regular Diet [DIET] - Plan Plan:: Admit to inpatient following normal spontaneous vaginal delivery Continue Pitocin per unit protocol following delivery of placenta and lactated Ringer's until tolerating regular diet Regular diet Vitals per unit routine Ibuprofen and Tylenol for pain control Assist with breast-feeding as needed Continue to monitor lochia CBC in the morning due to Lovenox administration Lovenox 40 mg subcutaneous at 11:30 PM which would be 4 hours after delivery unless she is having increased amount of lochia then we will delay until lochia has slowed Anticipate discharge home on day #1 or 2 depending on discharge status Rohit William MD 8:15 PM 07/07/2019
[2019-07-07] MEDS ORDERED: Docusate Sodium 100 MG Cap PO PRN (21:40)
[2019-07-07] MEDS ORDERED: Benzocaine/Menthol 20%-0.5% Spray 56 GM Canister TOP PRN (21:40)
[2019-07-07] MEDS ORDERED: Witch Hazel Medicated Pads 40/Jar TOP PRN (21:40)
[2019-07-07] MEDS ORDERED: Hydrocortisone Acetate 25 MG Supp RECTAL PRN (21:40)
[2019-07-07] MEDS ORDERED: Enoxaparin 40 MG/0.4 ML Syringe SUBCUT SCH (23:30)
[2019-07-08] MEDS ORDERED: Bupivacaine 0.25% 10 ML SDV ONE
[2019-07-08] MEDS ORDERED: Enoxaparin 40 MG/0.4 ML Syringe SUBCUT SCH ×2 (01:00→23:00)
--- NOTE | 2019-07-08 08:02 | PCM48HPAN ---
Post Anesthesia Note - EVALUATION WITHIN 48HRS OF ANESTHETIC Vital Signs in Normal Range: Yes Patient Participated in Evaluation: Yes Respiratory Function Stable: Yes Airway Patent: Yes Cardiovascular Function Stable: Yes Hydration Status Stable: Yes Pain Control Satisfactory: Yes Nausea and Vomiting Control Satisfactory: Yes Mental Status Recovered: Yes Vital Signs: Last Vital Signs Temp 36.9 C 07/08/19 03:04 Pulse 55 L 07/08/19 03:04 Resp 14 07/08/19 03:04 BP 104/57 L 07/08/19 03:04 Pulse Ox 99 07/08/19 03:04 - COMMENTS/OBSERVATIONS Free Text/Narrative:: no anesthesia complications noted
[2019-07-08] MEDS: Ibuprofen 600 MG Tab PO PRN ×2 (08:34→14:04)
[2019-07-08] MEDS ORDERED: Prenatal Multivitamin with Calcium/Folic Acid/Iron Tab PO SCH (09:00)
--- NOTE | 2019-07-08 09:38 | PCM.SN ---
- Free Text/Narrative Note: Post Progress Note PPD #1 Subjective: Doing well overall. Ambulating without difficulty. Lochia minimal. Reports that she did have several clots overnight and increased amount of bleeding when sitting up throughout the night but has slowed down this morning. Voiding without difficulty. Tolerating regular diet without nausea or vomiting. Pain controlled with oral medications. Breast-feeding with minimal difficulty. Objective: Vitals: Vital Signs - 24 hr 07/08/19 07/08/19 03:04 09:05 Temperature 36.9 C 36.7 C Pulse, 55 L 61 Peripheral Respiratory 14 14 Rate Blood Pressure 104/57 L 106/68 O2 Sat by Pulse 99 97 Oximetry Physical Exam General: Alert and oriented, no acute distress Lungs: Clear to auscultation bilaterally Heart: Regular rate and rhythm Abdomen: Soft, minimal appropriate tenderness, non-distended, fundus midline, nontender, and 1 fingerbreadth below the umbilicus Extremities: No edema, no calf tenderness Laboratory Tests 07/07/19 07/07/19 07/08/19 Range/Units 08:35 08:35 05:58 WBC 7.21 8.94 (3.98-10.04) K/mm3 RBC 3.90 L 3.62 L (3.98-5.22) M/mm3 Hgb 13.1 11.8 (11.2-15.7) gm/dl Hct 39.3 36.8 (34.1-44.9) % MCV 100.8 H 101.7 H (79.4-94.8) fl MCH 33.6 H 32.6 H (25.6-32.2) pg MCHC 33.3 32.1 L (32.2-35.5) g/dl RDW Std Deviation 49.3 H 48.7 H (36.4-46.3) fL Plt Count 234 204 (182-369) K/mm3 MPV 9.5 9.5 (9.4-12.3) fl Neut % (Auto) 66.1 58.4 (34.0-71.1) % Lymph % (Auto) 27.9 34.0 (19.3-51.7) % [place] % (Auto) 5.5 6.4 (4.7-12.5) % Eos % (Auto) 0.3 L 0.6 L (0.7-5.8) Baso % (Auto) 0.1 0.2 (0.1-1.2) % Neut # (Auto) 4.76 5.22 (1.56-6.13) K/mm3 Lymph # (Auto) 2.01 3.04 (1.18-3.74) K/mm3 [place] # (Auto) 0.40 H 0.57 H (0.24-0.36) K/mm3 Eos # (Auto) 0.02 L 0.05 (0.04-0.36) K/mm3 Baso # (Auto) 0.01 0.02 (0.01-0.08) K/mm3 Manual Slide Review Abnormal smear RPR Non-reactive (NONREACTIVE) ASSESSMENT: 23-year-old female -1-1-3 s/p normal vaginal delivery PPD #1, complicated by history of DVT and previous on Lovenox during this , history of delivery and previous , GBS bacteriuria and received a total of 3 doses of ampicillin prior to delivery and chlamydia infection during this with negative test of cure PLAN: Doing well Breast-feeding with minimal difficulty. Assist as needed Lochia minimal. Continue to monitor for appropriate lochia. Continue routine care Normal drop in hematocrit following delivery from 39.3 prior to delivery down to 36.8 this morning. Continue Lovenox 40 mg injections subcutaneous every 24 hours and will continue for 6 weeks after delivery which will be until 08/17/2019 Anticipate discharge home today Rohit William MD 9:37 AM 07/08/2019
--- NOTE | 2019-07-08 09:51 | PCM.DCSUM1 ---
Discharge Summary - Hospital Course Free Text/Narrative:: - General Info Date of Service: 07/07/19 Mother's Due Date: 07/12/19 - Delivery Note Labor: Augmented by ARM, Augmented by Oxytocin Infant Delivery Method: Spontaneous Vaginal Delivery-Single Presentation: Right Occiput Anterior (GALA) Nuchal Cord: Present (x1 and not reduced prior to delivery) Anesthesia Type: Epidural Episiotomy Type: None Laceration: Labial (left labial first degree repaired with 4-0 Vicryl), Perineal (first degree midline, repaired with 4-0 Vicryl) Suture type: Vicryl Suture size: 4-0 Placenta: Intact, Spontaneous Cord: 3 Vessels Estimated Blood Loss: 300 Resuscitation Needed: No : Bulb Syringe, Stimulated, Warmed, [place] Used Provider: Rohit William Score 1 min: 9 Score 5 min: 9 Second Stage Interventions: Reports: Pushing Effectively, Pushing, Stirrups/Leg Supports Delivery Comments (Free Text/Narrative):: Stage I: Alek Lieberman was admitted for elective induction of labor. On admission her cervix was dilated to 1.5 cm. She was GBS positive with asymptomatic GBS bacteria. She was started on ampicillin for GBS prophylaxis. She received a total of 3 doses prior to delivery. She was started on Pitocin for induction of labor. She had artificial rupture of membranes with return of clear fluid. She was given an epidural for anesthesia. She began having significant deep variable decelerations and the Pitocin was stopped. She continued to have deep variable decelerations and an intrauterine pressure catheter was placed and amnioinfusion started. She also had placement of scalp electrode for monitoring of heart rate. She was given approximately 1 hour of time to rest and recover with amnioinfusion and Pitocin was restarted for ongoing induction of labor. She progressed to complete and pushing. Stage II: On 07/07/2019 she had a normal vaginal delivery of a live male infant at 19:28. Apgars of 9 & 9. Weight and length were unavailable at time of this note. There was a single nuchal cord that was tight around the neck and not able to be reduced prior to delivery. Infant was delivered in GALA position. The cord was doubly clamped and cut by father of the infant. Infant was placed on mother's abdomen. Stage III: She had a spontaneous delivery of an intact placenta in Steve presentation. Three vessel cord. She was given pitocin and fundal massage. She had a first-degree midline perineal laceration that was repaired with 4-0 Vicryl. She had a first-degree left labial laceration that was bleeding and repaired with 4-0 Vicryl in running fashion. Mom and baby were stable to recovery. EBL of 300 mL. HPI Initial Comments: - General Info Date of Service: 07/07/19 Mother's Due Date: 07/12/19 - Delivery Note Labor: Augmented by ARM, Augmented by Oxytocin Infant Delivery Method: Spontaneous Vaginal Delivery-Single Presentation: Right Occiput Anterior (GALA) Nuchal Cord: Present (x1 and not reduced prior to delivery) Anesthesia Type: Epidural Episiotomy Type: None Laceration: Labial (left labial first degree repaired with 4-0 Vicryl), Perineal (first degree midline, repaired with 4-0 Vicryl) Suture type: Vicryl Suture size: 4-0 Placenta: Intact, Spontaneous Cord: 3 Vessels Estimated Blood Loss: 300 Resuscitation Needed: No : Bulb Syringe, Stimulated, Warmed, [place] Used Provider: Rohit William Score 1 min: 9 Score 5 min: 9 Second Stage Interventions: Reports: Pushing Effectively, Pushing, Stirrups/Leg Supports Delivery Comments (Free Text/Narrative):: Stage I: Alek Lieberman was admitted for elective induction of labor. On admission her cervix was dilated to 1.5 cm. She was GBS positive with asymptomatic GBS bacteria. She was started on ampicillin for GBS prophylaxis. She received a total of 3 doses prior to delivery. She was started on Pitocin for induction of labor. She had artificial rupture of membranes with return of clear fluid. She was given an epidural for anesthesia. She began having significant deep variable decelerations and the Pitocin was stopped. She continued to have deep variable decelerations and an intrauterine pressure catheter was placed and amnioinfusion started. She also had placement of scalp electrode for monitoring of heart rate. She was given approximately 1 hour of time to rest and recover with amnioinfusion and Pitocin was restarted for ongoing induction of labor. She progressed to complete and pushing. Stage II: On 07/07/2019 she had a normal vaginal delivery of a live male at 19:28. Apgars of 9 & 9. Weight and length were unavailable at time of this note. There was a single nuchal cord that was tight around the neck and not able to be reduced prior to delivery. was delivered in GALA position. The cord was doubly clamped and cut by father of the infant. was placed on mother's abdomen. Stage III: She had a spontaneous delivery of an intact placenta in Steve presentation. Three vessel cord. She was given pitocin and fundal massage. She had a first-degree midline perineal laceration that was repaired with 4-0 Vicryl. She had a first-degree left labial laceration that was bleeding and repaired with 4-0 Vicryl in running fashion. Mom and baby were stable to recovery. EBL of 300 mL. Brief History: - General Info. Date of Service: 07/07/19. Mother's Due Date: 07/12/19. - Delivery Note. Labor: Augmented by ARM, Augmented by Oxytocin. Delivery Method: Spontaneous Vaginal Delivery-Single. Presentation : Right Occiput Anterior (GALA). Nuchal Cord: Present (x1 and not reduced prior to delivery). Anesthesia Type: Epidural. Episiotomy Type: None. Laceration: Labial (left labial first degree repaired with 4-0 Vicryl), Perineal (first degree midline, repaired with 4-0 Vicryl). Suture type: Vicryl. Suture size: 4 -0. Placenta: Intact, Spontaneous. Cord: 3 Vessels. Estimated Blood Loss: 300. Resuscitation Needed: No. : Bulb Syringe, Stimulated, Warmed, [place] Used. Provider: Rohit William. Score 1 min: 9. Score 5 min: 9. Second Stage Interventions: Reports: Pushing Effectively, Pushing, Stirrups/Leg Supports. Delivery Comments (Free Text/Narrative):: Stage I: Alek Lieberman was admitted for elective induction of labor. On admission her cervix was dilated to 1.5 cm. She was GBS positive with asymptomatic GBS bacteria. She was started on ampicillin for GBS prophylaxis. She received a total of 3 doses prior to delivery. She was started on Pitocin for induction of labor. She had artificial rupture of membranes with return of clear fluid. She was given an epidural for anesthesia. She began having significant deep variable decelerations and the Pitocin was stopped. She continued to have deep variable decelerations and an intrauterine pressure catheter was placed and amnioinfusion started. She also had placement of scalp electrode for monitoring of heart rate. She was given approximately 1 hour of time to rest and recover with amnioinfusion and Pitocin was restarted for ongoing induction of labor. She progressed to complete and pushing. Stage II: On 07/07/2019 she had a normal vaginal delivery of a live male at 19:28. Apgars of 9 & 9. Weight and length were unavailable at time of this note. There was a single nuchal cord that was tight around the neck and not able to be reduced prior to delivery. was delivered in GALA position. The cord was doubly clamped and cut by father of the . was placed on mother's abdomen. Stage III: She had a spontaneous delivery of an intact placenta in Steve presentation. Three vessel cord. She was given pitocin and fundal massage. She had a first-degree midline perineal laceration that was repaired with 4-0 Vicryl. She had a first-degree left labial laceration that was bleeding and repaired with 4-0 Vicryl in running fashion. Mom and baby were stable to recovery. EBL of 300 mL. Diagnosis: Stroke: No - Discharge Data Discharge Date: 07/08/19 Discharge Disposition: Home, Self-Care 01 Condition: Good - Referral to Home Health Primary Care Physician: Rohit William MD - Discharge Diagnosis/Problem(s) (1) History of deep vein thrombosis (DVT) during SNOMED Code(s): 97461545 ICD Code: Z86.718 - PERSONAL HISTORY OF OTHER VENOUS THROMBOSIS AND EMBOLISM ; Z87.59 - PERSONAL HISTORY OF COMP OF PREG, CHLDBRTH AND THE PUERP Status: Acute Current Visit: Yes (2) History of delivery, currently SNOMED Code(s): 132208398, 356684636 ICD Code: O09.219 - SUPRVSN OF PREG W HISTORY OF PRE-TERM LABOR, UNSP TRIMESTER Status: Acute Current Visit: Yes (3) 39 weeks gestation of SNOMED Code(s): 65334991 ICD Code: Z3A.39 - 39 WEEKS GESTATION OF Status: Acute Current Visit: Yes (4) Chlamydia infection SNOMED Code(s): 797294690 ICD Code: A74.9 - CHLAMYDIAL INFECTION, UNSPECIFIED Status: Acute Current Visit: Yes (5) GBS bacteriuria SNOMED Code(s): 09228514 ICD Code: R82.71 - BACTERIURIA Status: Acute Current Visit: Yes (6) Vaginal delivery SNOMED Code(s): 151224177 ICD Code: O80 - ENCOUNTER FOR FULL-TERM UNCOMPLICATED DELIVERY Status: Acute Current Visit: Yes (7) First degree perineal laceration during delivery SNOMED Code(s): 981916566 ICD Code: O70.0 - FIRST DEGREE PERINEAL LACERATION DURING DELIVERY Status: Acute Current Visit: Yes - Patient Summary/Data Complications: None Consults: None Hospital Course: Alek Lieberman was admitted for elective induction of labor. On admission her cervix was dilated to 1.5 cm. She was GBS positive with asymptomatic GBS bacteriuria during the . She was started on ampicillin for GBS prophylaxis and received a total of 3 doses prior to delivery. She was given pitocin for augmentation. She had artificial rupture of membranes with clear fluid. She was given an epidural for anesthesia. Due to difficult and deep variable decelerations her Pitocin was stopped and she continued to have these decelerations. An intrauterine pressure catheter was placed and amnioinfusion started. She had a scalp electrode placed for monitoring heart rate. Pitocin was restarted and she progressed to complete and pushing. She progressed to complete and began pushing. On 07/07/2019 she had a normal vaginal delivery of a live male infant at 19:28. Apgars of 9 and 9. Weight of 3030 g (6 pounds 10.9 ounces). Her course was uneventful. She was given her first dose of Lovenox 40 mg subcutaneous after delivery at approximately 5.5 hours after delivery. Her pain was well controlled and she had minimal lochia. She was ambulating, tolerating a regular diet and voiding normally. She was breast-feeding with minimal difficulty. She was afebrile and her hematocrit was 36.8 on day #1. She desired to be discharged home on the morning of PPD #1. Her blood type is O+. - Patient Instructions Diet: Regular Diet as Tolerated Activity: Apply Ice, As Tolerated Activity, Other: Nothing in the vagina for 6 weeks Driving: May Drive Today Showering/Bathing: May Shower Notify Provider of: Fever, Increased Pain, Swelling and Redness, Drainage, Nausea and/or Vomiting Other/Special Instructions: Please contact your physician's office if you have heavy vaginal bleeding enough to soak a pad in less than an hour for several hours. Monitor for any signs of an infection in the breasts with severe pain or redness of the breast. Monitor for any signs of blood clot in arms or legs including increased swelling, redness or pain in an extremity, especially if it is only on one side. - Discharge Plan *PRESCRIPTION DRUG MONITORING PROGRAM REVIEWED*: Not Applicable *COPY OF PRESCRIPTION DRUG MONITORING REPORT IN PATIENT IMGUELINA: Not Applicable Home Medications: Home Meds Enoxaparin Sodium [Lovenox] 40 mg SQ DAILY 07/07/19 [History] #103/Iron Fumarate/Fa [ ] 1 each PO DAILY 07/07/19 [ History] Acetaminophen [Tylenol] 650 mg PO Q6H PRN tablet 07/08/19 [Rx] Benzocaine/Menthol [Dermoplast Pain Relief [place]] 1 spray TOP ASDIRECTED PRN canister 07/08/19 [Rx] Docusate Sodium [Colace] 100 mg PO BID PRN cap 07/08/19 [Rx] Hydrocortisone Acetate [Anucort-HC] 25 mg RECTAL BID PRN supp 07/08/19 [Rx] Ibuprofen [Motrin] 600 mg PO Q6H PRN tablet 07/08/19 [Rx] Witch Lynne [Tucks] 1 pad TOP ASDIRECTED PRN pad 07/08/19 [Rx] Patient Handouts: Bleeding Precautions When on Anticoagulant Therapy, Adult, Vaginal Delivery, Care After, Care of a Perineal Tear Referrals: Rohit William MD [Primary Care Provider] - (Follow-up in 2 to 3 weeks for routine visit or earlier as needed.) - Discharge Summary/Plan Comment DC Time >30 min.: No - Patient Data Vitals - Most Recent: Last Vital Signs Temp 36.7 C 07/08/19 09:05 Pulse 61 07/08/19 09:05 Resp 14 07/08/19 09:05 BP 106/68 07/08/19 09:05 Pulse Ox 97 07/08/19 09:05 Weight - Most Recent: 71.214 kg I&O - Last 24 hours: Intake & Output 07/07/19 07/08/19 07/08/19 22:59 06:59 14:59 Output Total 1100 Balance -1100 Lab Results - Last 24 hrs: Laboratory Results - last 24 hr 07/07/19 07/08/19 Range/Units 08:35 05:58 WBC 8.94 (3.98-10.04) K/mm3 RBC 3.62 L (3.98-5.22) M/mm3 Hgb 11.8 (11.2-15.7) gm/dl Hct 36.8 (34.1-44.9) % MCV 101.7 H (79.4-94.8) fl MCH 32.6 H (25.6-32.2) pg MCHC 32.1 L (32.2-35.5) g/dl RDW Std Deviation 48.7 H (36.4-46.3) fL Plt Count 204 (182-369) K/mm3 MPV 9.5 (9.4-12.3) fl Neut % (Auto) 58.4 (34.0-71.1) % Lymph % (Auto) 34.0 (19.3-51.7) % [place] % (Auto) 6.4 (4.7-12.5) % Eos % (Auto) 0.6 L (0.7-5.8) Baso % (Auto) 0.2 (0.1-1.2) % Neut # (Auto) 5.22 (1.56-6.13) K/mm3 Lymph # (Auto) 3.04 (1.18-3.74) K/mm3 [place] # (Auto) 0.57 H (0.24-0.36) K/mm3 Eos # (Auto) 0.05 (0.04-0.36) K/mm3 Baso # (Auto) 0.02 (0.01-0.08) K/mm3 Manual Slide Review Abnormal smear RPR Non-reactive (NONREACTIVE) Med Orders - Current: Current Medications Acetaminophen (Tylenol) 650 mg PO Q6H PRN PRN Reason: mild pain or fever Benzocaine/Menthol (Dermoplast Pain Relief [place]) 0 gm TOP ASDIRECTED PRN PRN Reason: Perineal Comfort Measure Last Admin: 07/07/19 22:01 Dose: 1 can Docusate Sodium (Colace) 100 mg PO BID PRN PRN Reason: Constipation Enoxaparin Sodium (Lovenox) 40 mg SUBCUT Q24H AICHA Hydrocortisone Acetate (Anucort-Hc) 25 mg RECTAL BID PRN PRN Reason: Hemorrhoid pain Oxytocin/Lactated Ringer's (Pitocin In Lr 10 Units/1,000 Ml) 10 unit in 1,000 mls @ 100 mls/hr IV TITRATE AICHA; Protocol Ibuprofen (Motrin) 600 mg PO Q6H PRN PRN Reason: Mild pain or fever Last Admin: 07/08/19 08:34 Dose: 600 mg Prenat Multivit/Driver License Reviewing Officer/Iron/Folic Ac ( Plus Iron) 1 each PO DAILY AICHA Last Admin: 07/08/19 08:29 Dose: 1 each Witch Lynne (Tucks) 1 pad TOP ASDIRECTED PRN PRN Reason: Perineal Comfort Measure Last Admin: 07/07/19 22:00 Dose: 1 tub Discontinued Medications Acetaminophen (Tylenol) 650 mg PO Q6H PRN PRN Reason: Pain (Mild 1-3) and fever Bupivacaine HCl (Sensorcaine-Mpf 0.25%) 10 ml .ROUTE .STK-MED ONE Stop: 07/08/19 00:01 Diphenhydramine HCl (Benadryl) 25 mg IVPUSH Q6H PRN PRN Reason: pruritis Enoxaparin Sodium (Lovenox) 40 mg SUBCUT DAILY [facility] Enoxaparin Sodium (Lovenox) 40 mg SUBCUT Q24H [facility] Last Admin: 07/08/19 01:28 Dose: 40 mg Ephedrine Sulfate (Ephedrine Sulfate) 5 mg IVPUSH ASDIRECTED PRN PRN Reason: Hypotension Fentanyl (Sublimaze) 100 mcg EPIDUR Q3H PRN PRN Reason: Pain Last Admin: 07/07/19 14:36 Dose: 100 mcg Fentanyl/Bupivacaine HCl (Fentanyl/Bupivacaine/Ns 2 Mcg-0.125% 250 Ml) 250 ml EPIDUR CONTINUOUS PRN PRN Reason: Pain Last Admin: 07/07/19 14:37 Dose: 250 ml Ampicillin Sodium 2 gm/ Sodium (Chloride) 100 mls @ 200 mls/hr IV ONETIME ONE Stop: 07/07/19 09:29 Last Admin: 07/07/19 09:00 Dose: 200 mls/hr Ampicillin Sodium 1 gm/ Sodium (Chloride) 100 mls @ 200 mls/hr IV Q4H AICHA Last Admin: 07/07/19 17:05 Dose: 200 mls/hr Lactated Ringer's (Ringers, Lactated) 1,000 mls @ 100 mls/hr IV ASDIRECTED AICHA Last Admin: 07/07/19 15:46 Dose: 100 mls/hr Oxytocin/Lactated Ringer's (Pitocin In Lr 10 Units/1,000 Ml) 10 unit in 1,000 mls @ 12 mls/hr IV TITRATE AICHA; Protocol Last Titration: 07/07/19 18:56 Dose: 4 munits/min, 24 mls/hr Oxytocin/Lactated Ringer's (Pitocin In Lr 10 Units/1,000 Ml) 10 unit in 1,000 mls @ 100 mls/hr IV .CONTINUOUS AICHA; Protocol Last Admin: 07/07/19 20:14 Dose: 500 mls/hr Sodium Chloride (Normal Saline) 1,000 mls @ 50 mls/hr .XX ASDIRECTED PRN PRN Reason: AMNIO INFUSION IN UTERUS Last Admin: 07/07/19 16:30 Dose: 50 mls/hr Nalbuphine HCl (Nubain) 10 mg IVPUSH Q2H PRN PRN Reason: Pain Ondansetron HCl (Zofran) 4 mg IVPUSH Q8H PRN PRN Reason: Nausea Last Admin: 07/07/19 18:52 Dose: 4 mg Sodium Chloride (Saline Flush) 10 ml FLUSH ASDIRECTED PRN PRN Reason: Keep Vein Open
== END 2019-07-08 20:42 | disposition home or self-care (01) | DRG 560 ==
LOC: JD.OB 07:07 → OBSVTOIN 19:27 → JD.OB 19:27
PROVIDERS: ADMIT Obstetrics & Gynecology; ATTEND Obstetrics & Gynecology
PROC: 10E0XZZ Delivery of Products of Conception, External Approach (ICD-10-PCS; principal; 2019-07-07)
PROC: 10907ZC Drainage of Amniotic Fluid, Therapeutic from Products of Conception, Via Natural or Artificial Opening (ICD-10-PCS; 2019-07-07)
PROC: 0HQ9XZZ Repair Perineum Skin, External Approach (ICD-10-PCS; 2019-07-07)
PROC: 10H07YZ Insertion of Other Device into Products of Conception, Via Natural or Artificial Opening (ICD-10-PCS; 2019-07-07)
PROC: 3E0R3BZ Introduction of Anesthetic Agent into Spinal Canal, Percutaneous Approach (ICD-10-PCS; 2019-07-07)
PROC: 00HU33Z Insertion of Infusion Device into Spinal Canal, Percutaneous Approach (ICD-10-PCS; 2019-07-07)
DX: O99.824 Streptococcus B carrier state complicating childbirth (principal); O76 Abnormality in fetal heart rate and rhythm complicating labor and delivery; O70.0 First degree perineal laceration during delivery; Z37.0 Single live birth; Z3A.39 39 weeks gestation of pregnancy
CPT/HCPCS: 01967; 36415; 51702; 59025; 59409; 85025; 86592; A9270-GY; J0290; J1650; J2405; J2590; J3010; J3490; J7030; J7050; J7120

== ENCOUNTER 2019-07-15 17:24 | Emergency (ER) | payer BC ==
--- NOTE | 2019-07-15 19:48 | US ---
Bilateral lower extremity deep venous ultrasound: Duplex and color Doppler evaluation was obtained of the right and left common femoral, greater saphenous, superficial femoral, popliteal, posterior tibial and peroneal veins. Findings: Normal phasic flow, augmentation and compression is seen. Impression: 1. No evidence of deep venous thrombosis within either the right or left lower extremities. Diagnostic code #1 This report was dictated in [place] Standard Time
--- NOTE | 2019-07-15 19:55 | EDM.PDOC ---
ED HPI GENERAL MEDICAL PROBLEM - General Chief Complaint: Lower Extremity Injury/Pain Stated Complaint: POSS BLOODCLOT ON RIGHT FOOT Time Seen by Provider: 07/15/19 18:01 Source of Information: Reports: Patient History Limitations: Reports: No Limitations - History of Present Illness INITIAL COMMENTS - FREE TEXT/NARRATIVE: Patient is a 23-year-old female who was approximately 8 days who presents with complaints of right lower extremity swelling and pain to the medial aspect of her calf. She verbalizes that the intermittent pain and edema began yesterday. Patient states that after her previous she did have a DVT in her left arm that did mobilized to her lungs. She has had coagulation studies done, however she has not been diagnosed with any clotting disorders. She is currently on Lovenox 40 mg subcutaneous prophylactically. She spoke with her [facility], Dr. Benson, and he recommended that she come to the ER to have an ultrasound of her leg done to rule out DVT. She denies any shortness of breath or chest pain. Right Feet Pain Score (Numeric/FACES): 2 - Related Data Allergies Allergy/AdvReac Type Severity Reaction Status Date / Time epidural attachment pad Allergy Rash Uncoded 07/15/19 17:52 Home Meds: Home Meds Enoxaparin Sodium [Lovenox] 40 mg SQ DAILY 07/07/19 [History] #103/Iron Fumarate/Fa [ ] 1 each PO DAILY 07/07/19 [ History] Ibuprofen [Motrin] 600 mg PO Q6H PRN tablet 07/08/19 [Rx] Ferrous Gluconate [Iron] 1 tab PO DAILY 07/15/19 [History] Past Medical History - Past Health History Medical/Surgical History: Denies Medical/Surgical History Cardiovascular History: Reports: Blood Clots/VTE/DVT Respiratory History: Reports: None, Other (See Below) Gastrointestinal History: Reports: None [facility] History: Reports: , Spontaneous Musculoskeletal History: Reports: None Other Musculoskeletal History: hx blood clot to right arm Endocrine/Metabolic History: Reports: None Hematologic History: Reports: Anemia - Past Surgical History Musculoskeletal Surgical History: Reports: Other (See Below) Other Musculoskeletal Surgeries/Procedures:: left arm fracture - History Comment History Comment: prnatal vitamins and iron and lovenox Social & Family History - Family History Family Medical History: Noncontributory - Tobacco Use Smoking Status *Q: Never Smoker Second Hand Smoke Exposure: No - Caffeine Use Caffeine Use: Reports: Coffee - Recreational Drug Use Recreational Drug Use: No Review of Systems - Review of Systems Review Of Systems: Comprehensive ROS is negative, except as noted in HPI. ED EXAM, GENERAL - Physical Exam Exam: See Below Exam Limited By: No Limitations General Appearance: Alert, No Apparent Distress Respiratory/Chest: No Respiratory Distress, Lungs Clear, Normal Breath Sounds, No Accessory Muscle Use, Chest Non-Tender Cardiovascular: Normal Peripheral Pulses, Regular Rate, Rhythm, No Edema, No Gallop, No JVD, No Murmur, No Rub Extremities: Pedal Edema (1+ nonpitting to right foot and lower leg), Other ( mild tenderness to the medial calf). No: Increased Warmth, Redness Neurological: Alert, Oriented, CN II-XII Intact, Normal Cognition, Normal Gait, Normal Reflexes, No Motor/Sensory Deficits Psychiatric: Normal Affect, Normal Mood Skin Exam: Warm, Dry, Intact, Normal Color, No Rash Course - Vital Signs Last Recorded V/S: Last Vital Signs Temp 97.7 F 07/15/19 17:49 Pulse 56 L 07/15/19 17:49 Resp 16 07/15/19 17:49 BP 109/81 07/15/19 17:49 Pulse Ox 99 07/15/19 17:49 - Re-Assessments/Exams Free Text/Narrative Re-Assessment/Exam: 07/15/19 19:53 ultrasound of the right lower leg was negative for any signs of DVT. She'll be discharged home with orders to continue her Lovenox as previously prescribed and follow up with [facility]. Discharge instructions as noted. Departure - Departure Time of Disposition: 19:53 Disposition: Home, Self-Care 01 Condition: Good, Fair Clinical Impression: Lower leg edema - Discharge Information *PRESCRIPTION DRUG MONITORING PROGRAM REVIEWED*: No *COPY OF PRESCRIPTION DRUG MONITORING REPORT IN PATIENT MIGUELINA: No Instructions: Edema Referrals: Rohit William MD [Primary Care Provider] - Additional Instructions: You were seen in the emergency department today for swelling and tenderness to your right foot and lower leg. An ultrasound was done of your right lower extremity and there is no evidence of a deep venous thrombosis. I recommend that you continue taking your Lovenox as previously prescribed and follow up with your [facility]. If you should experience any new or worsening symptoms, please do not hesitate to return to the emergency department. Sepsis Event Note - Evaluation Sepsis Screening Result: No Definite Risk - Focused Exam Vital Signs: Vital Signs Temp Pulse Resp BP Pulse Ox 07/15/19 17:49 97.7 F 56 L 16 109/81 99 Date Exam was Performed: 07/15/19 Time Exam was Performed: 19:49
== END 2019-07-15 20:25 | disposition home or self-care (01) ==
LOC: JD.ED 17:24
DX: O90.89 Other complications of the puerperium, not elsewhere classified (principal); R60.0 Localized edema; Z91.048 Other nonmedicinal substance allergy status
CPT/HCPCS: 93970; 93970-26; 99282; 99283-25

== ENCOUNTER 2023-01-09 07:04 | Day surgery (SDC) | payer SELFPAY ==
[~2023-01-09 07:04] MED LIST: Lactated Ringers 1,000 ML IV SCH; Sodium Chloride 0.9% 10 ML Syringe FLUSH PRN; Sodium Chloride 0.9% 10 ML Syringe FLUSH SCH
[2023-01-09] MEDS ORDERED: Bupivacaine 0.5% 10 ML SDV ONE (07:09)
[2023-01-09] MEDS ORDERED: fentaNYL 100 MCG/2 ML SDV ONE (07:19)
[2023-01-09] MEDS ORDERED: Propofol 200 MG/20 ML SDV ONE (07:21)
[2023-01-09] MEDS ORDERED: Ondansetron 4 MG/2 ML SDV ONE (07:23)
[2023-01-09] MEDS ORDERED: Succinylcholine 200 MG/10 ML MDV ONE (07:23)
[2023-01-09] MEDS ORDERED: Lidocaine 1% 5 ML VIAL ONE (07:23)
[2023-01-09] MEDS ORDERED: Ketorolac 30 MG/ML SDV ONE (07:24)
[2023-01-09 07:26] LABS: APPEARANCE,URINE CLEAR (Clear); BILIRUBIN,URINE NEGATIVE (Negative); COLOR,URINE YELLOW (Yellow); GLUCOSE,URINE NEGATIVE (Negative); KETONES,URINE NEGATIVE (Negative); LEUKOCYTE ESTERASE,URINE NEGATIVE (Negative); NITRITE,URINE NEGATIVE (Negative); OCCULT BLOOD,URINE NEGATIVE (Negative); PROTEIN,URINE NEGATIVE (Negative); UROBILINOGEN,URINE 0.2 (0.2-1.0)
[2023-01-09] MEDS ORDERED: HYDROmorphone 0.5 MG/0.5 ML Syringe IVPUSH PRN (07:38)
[2023-01-09] MEDS ORDERED: Ondansetron 4 MG/2 ML SDV IVPUSH PRN (07:38)
[2023-01-09] MEDS ORDERED: fentaNYL 100 MCG/2 ML SDV IVPUSH PRN (07:38)
[2023-01-09] MEDS ORDERED: Scopolamine 1.5 MG Transdermal Patch TRDERM ONE (07:45)
[2023-01-09] MEDS ORDERED: Rocuronium 50 MG/5 ML Vial ONE (08:24)
[2023-01-09] MEDS ORDERED: HYDROmorphone 0.5 MG/0.5 ML Syringe ONE (08:58)
[2023-01-09] MEDS ORDERED: Acetaminophen/oxyCODONE 325-5 MG Tab PO ONE (10:00)
== END 2023-01-09 10:42 | disposition home or self-care (01) ==
LOC: JD.SDS 07:04
PROVIDERS: ATTEND Obstetrics & Gynecology
DX: T83.39XA Other mechanical complication of intrauterine contraceptive device, initial encounter (principal); J30.9 Allergic rhinitis, unspecified; N83.01 Follicular cyst of right ovary; F17.210 Nicotine dependence, cigarettes, uncomplicated; Z79.899 Other long term (current) drug therapy
CPT/HCPCS: 49329; 74018; 81003; 81025; A9270; J0330; J1170; J1885; J2405; J2704; J3010; J3490; J7120; 00840